=== PATIENT | female | born 1980 | race Caucasian/White ===

== ENCOUNTER → 2024-01-31 15:35 | Outpatient (REF) | payer OTHER, SELFPAY | LOC: WDC 15:35 | PROVIDERS: ATTENDING PHYSICIAN Family Medicine | DX: Z12.31 Encounter for screening mammogram for malignant neoplasm of breast (principal) | CPT/HCPCS: 77063; 77067 ==

== ENCOUNTER 2024-03-24 10:15 | Inpatient (IN) | payer OTHER, SELFPAY ==
[2024-03-22 10:45] VITALS: BP 119/80
[2024-03-22 11:44] LABS: % Basophils 0.3 % (0-2); % Eosinophils 0.4 % (0-6); % Immature Granulocytes 0.1 % (0-0.5); % Lymphocytes 16.5 % (20.5-51.1); % Neutrophils 76.7 % (42.2-75.2); Absolute Lymphocytes 1.1 10^3/uL (1.2-3.4); Absolute Monocytes 0.4 10^3/uL (0.1-0.6); Absolute Neutrophils 5.3 10^3/uL (1.4-6.5); Hematocrit 43.1 % (37.0-47.0); Hemoglobin 15.5 g/dL (12.0-16.0); Mean Corpuscular Hgb 31.4 pg (27.0-31.0); Mean Corpuscular Volume 87.2 fL (81.0-99.0); Mean Platelet Volume 10.4 fL (7.4-10.4); Nucleated Red Blood Cells % 0 %; Platelet Count 207 10^3/uL (130-400); Red Blood Cell Count 4.94 10^6/uL (4.20-5.40); Red Cell Dist. Width 11.9 % (11.5-14.5); White Blood Cell Count 6.9 10^3/uL (4.8-10.8)
[2024-03-22 12:01] LABS: ALT (SGPT) 29 U/L (0-35); AST (SGOT) 29 U/L (14-36); Albumin 4.6 g/dl (3.5-5.0); Alkaline Phosphatase 59 U/L (38-126); Blood Urea Nitrogen 15 mg/dl (7-17); Calcium 9.3 mg/dl (8.4-10.2); Carbon Dioxide 24 mmol/L (22-30); Chloride 103 mmol/L (98-107); Glucose 92 mg/dl (70-99); Potassium 4.4 mmol/L (3.5-5.1); Sodium 138 mmol/L (135-145); Total Bilirubin 0.8 mg/dl (0.2-1.3); Total Protein 7.2 g/dl (6.3-8.2); eGFR > 60.00
[2024-03-22 12:12] LABS: HCG, Serum Qualitative Screen Negative
--- NOTE | 2024-03-22 12:30 | ED.GENMED ---
History of Present Illness
<Elier Anaya PA-C - Last Filed: 03/22/24 19:57>
General
Chief Complaint: Back Pain
Source: patient
Exam Limitations: none
Time Seen by Provider: 03/22/24 12:10
History of Present Illness
History of Present Illness:
44-year-old otherwise healthy female presents complaining of progressively worsening severe lower back pain that radiates to the bilateral lower extremities. She also states that she is not emptying her bladder. She notes increased frequency of
urination but feels a full bladder. She now notes that both feet feel numb. The pain is significantly made worse with walking. No known injury. No fever. She does not use IV drugs. She also notes that she has been bruising in her legs easily.
She denies any bleeding gums. No other complaints at this time
Phy Exam
<Elier Anaya PA-C - Last Filed: 03/22/24 19:57>
Physical Exam
Physical Exam:
General: Well-appearing female no acute respiratory distress
HEENT: Normocephalic atraumatic heart: Regular rate and rhythm no murmurs
Lungs: Clear no wheeze or rales
Musculoskeletal exam: Mild tenderness about the lower lumbar spine neurologic exam: Alert normal gait. Notes slightly decreased sensation to light touch. 2+ patellar reflexes. Positive bilateral straight leg raise good strength.
Skin: Small bruises noted to the outer aspects of the thighs bilaterally
Vascular: 2+ dorsalis pedis pulse bilateral feet
Course
<JEEVAN Hammond Last Filed: 03/22/24 19:57>
Orders/Labs/Results
Orders:
Orders
03/22/24 11:37
Complete Blood Count/With Diff Urgent
Comprehensive Metabolic Panel Urgent
Creatine Phosphokinase Urgent
Comment: ADD ON
HCG, Serum Qualitative Screen Urgent
Comment: ADD ON
03/22/24 11:54
Add On- LAB Urgent
Comments:: HCG qual serum
Tests Added?: HCG qual serum
03/22/24 12:23
Bladder Scan- Treatment ONCE
Ketorolac [Toradol] 15 mg IV NOW STA
03/22/24 12:24
Dexamethasone Sod Phosphate [Decadron] 10 mg IV NOW STA
03/22/24 12:28
MR Lumbar Without Contrast Urgent
Comment:
Reason For Exam: bilateral leg pain, urinary retention
Recent pill cam endoscopy?: No
03/22/24 12:40
PT/INR [Prothrombin Time] Urgent
Urinalysis Reflex To Culture Urgent
Date Specimen was Collected: 03/22/24
Time Specimen was Collected: 12:29
Urine Microscopic Reflex Cult Urgent
03/22/24 12:42
Add On- LAB Urgent
Tests Added?: cpk
03/22/24 18:20
CT Head W/o Iv Contrast Urgent
Comment:
Reason For Exam: headache, confusion
03/22/24 23:15
Acetaminophen [Tylenol] 650 mg PO NOW STA
03/22/24 23:47
Admit/Transfer Patient As Directed
Co-Sign Provider:
Level of Care: Observation services
Assign to:: Medical/Surgical
Physician / Group: Long
Diagnosis: Back Pain / Hip Pain
PRN Pain Medication Management As Directed
May give lesser potent ordered pain med per pt: Yes
preference::
Protocol:: Medication orders for pain may be administered in a
manner that supports deferring to patient preference
when the pt is:
- Requesting an ordered lesser potent pain medication.
Least to most potent pain medications are defined
as: acetaminophen < NSAID < tramadol < opioids
(morphine, oxycodone, hydromorphone).
- Requesting a lesser dose of the same medication IF
ORDERED.
- Requesting a less intrusive route of administration
if both routes are prescribed by the provider (PO <
IV).
03/22/24 23:48
Code Status As Directed
Resuscitation Status: Full Code
Abnormal Lab Results
03/22/24 03/22/24
11:37 12:40
MCH 31.4 H pg
(27.0-31.0)
Absolute Lymphs (auto) 1.1 L 10^3/uL
(1.2-3.4)
Neutrophils % 76.7 H %
(42.2-75.2)
Lymphocytes % 16.5 L %
(20.5-51.1)
Leukocyte Esterase Rfl Trace A
(Negative)
Urine Bacteria (Reflex) Few A
(Negative)
03/22/24 11:37
03/22/24 11:37
Vital Signs
Initial and Last Documented VS:
Initial Vital Signs
Temp Pulse Resp BP Pulse Ox
97.4 F 89 18 119/80 100
03/22/24 10:45 03/22/24 10:45 03/22/24 10:45 03/22/24 10:45 03/22/24 10:45
Last Documented Vital Signs
Temp Pulse Resp BP Pulse Ox
98.7 F 104 20 125/69 98
03/22/24 21:42 03/22/24 21:42 03/22/24 21:42 03/22/24 21:42 03/22/24 21:42
<ALEKSANDRA Caldwell - Last Filed: 03/23/24 00:10>
Orders/Labs/Results
Orders:
Orders
03/22/24 11:37
Complete Blood Count/With Diff Urgent
Comprehensive Metabolic Panel Urgent
Creatine Phosphokinase Urgent
Comment: ADD ON
HCG, Serum Qualitative Screen Urgent
Comment: ADD ON
03/22/24 11:54
Add On- LAB Urgent
Comments:: HCG qual serum
Tests Added?: HCG qual serum
03/22/24 12:23
Bladder Scan- Treatment ONCE
Ketorolac [Toradol] 15 mg IV NOW STA
03/22/24 12:24
Dexamethasone Sod Phosphate [Decadron] 10 mg IV NOW STA
03/22/24 12:28
MR Lumbar Without Contrast Urgent
Comment:
Reason For Exam: bilateral leg pain, urinary retention
Recent pill cam endoscopy?: No
03/22/24 12:40
PT/INR [Prothrombin Time] Urgent
Urinalysis Reflex To Culture Urgent
Date Specimen was Collected: 03/22/24
Time Specimen was Collected: 12:29
Urine Microscopic Reflex Cult Urgent
03/22/24 12:42
Add On- LAB Urgent
Tests Added?: cpk
03/22/24 18:20
CT Head W/o Iv Contrast Urgent
Comment:
Reason For Exam: headache, confusion
03/22/24 23:15
Acetaminophen [Tylenol] 650 mg PO NOW STA
03/22/24 23:47
Admit/Transfer Patient As Directed
Co-Sign Provider:
Level of Care: Observation services
Assign to:: Medical/Surgical
Physician / Group: Long
Diagnosis: Back Pain / Hip Pain
PRN Pain Medication Management As Directed
May give lesser potent ordered pain med per pt: Yes
preference::
Protocol:: Medication orders for pain may be administered in a
manner that supports deferring to patient preference
when the pt is:
- Requesting an ordered lesser potent pain medication.
Least to most potent pain medications are defined
as: acetaminophen < NSAID < tramadol < opioids
(morphine, oxycodone, hydromorphone).
- Requesting a lesser dose of the same medication IF
ORDERED.
- Requesting a less intrusive route of administration
if both routes are prescribed by the provider (PO <
IV).
03/22/24 23:48
Code Status As Directed
Resuscitation Status: Full Code
Abnormal Lab Results
03/22/24 03/22/24
11:37 12:40
MCH 31.4 H pg
(27.0-31.0)
Absolute Lymphs (auto) 1.1 L 10^3/uL
(1.2-3.4)
Neutrophils % 76.7 H %
(42.2-75.2)
Lymphocytes % 16.5 L %
(20.5-51.1)
Leukocyte Esterase Rfl Trace A
(Negative)
Urine Bacteria (Reflex) Few A
(Negative)
03/22/24 11:37
03/22/24 11:37
Vital Signs
Initial and Last Documented VS:
Initial Vital Signs
Temp Pulse Resp BP Pulse Ox
97.4 F 89 18 119/80 100
03/22/24 10:45 03/22/24 10:45 03/22/24 10:45 03/22/24 10:45 03/22/24 10:45
Last Documented Vital Signs
Temp Pulse Resp BP Pulse Ox
98.7 F 104 20 125/69 98
03/22/24 21:42 03/22/24 21:42 03/22/24 21:42 03/22/24 21:42 03/22/24 21:42
<Elier Anaya PA-C - Last Filed: 03/22/24 19:57>
MDM/Problems Addressed
Differential Diagnosis Includes:
Low back pain with leg pain and urinary symptoms. Most concerning item in differential will be potentially cauda equina however this would be unlikely in an otherwise healthy younger female. Given her symptoms of severe back pain and urinary
retention will check urinalysis and postvoid residual of almost 300mL will attempt to get MRI of her lumbar spine. Consider radiculopathy as source of discomfort. She does not have a fever does not use IV drugs. Do not suspect epidural abscess.
She has palpable pulses to her feet with good blood flow to her feet do not suspect vascular compromise. No evidence of paralysis on exam
Labs pending will treat with Decadron and Toradol for symptoms. Discussed with radiology. Will attempt to get MRI of lumbar spine
MRI pending. While waiting, patient noticed she has been confused and mixing words up as well. CT head ordered which is pending official read but no obvious findings to ED provider.
<ALEKSANDRA Caldwell - Last Filed: 03/23/24 00:10>
MDM/Problems Addressed
Differential Diagnosis Includes:
Low back pain with leg pain and urinary symptoms. Most concerning item in differential will be potentially cauda equina however this would be unlikely in an otherwise healthy younger female. Given her symptoms of severe back pain and urinary
retention will check urinalysis and postvoid residual of almost 300mL will attempt to get MRI of her lumbar spine. Consider radiculopathy as source of discomfort. She does not have a fever does not use IV drugs. Do not suspect epidural abscess.
She has palpable pulses to her feet with good blood flow to her feet do not suspect vascular compromise. No evidence of paralysis on exam
Labs pending will treat with Decadron and Toradol for symptoms. Discussed with radiology. Will attempt to get MRI of lumbar spine
MRI pending. While waiting, patient noticed she has been confused and mixing words up as well. CT head ordered which is pending official read but no obvious findings to ED provider.
2315: received sign out . MRI with mild degenerative change of the spine. discussed with previous provider will adm for back pain ,urinary retention leg pain ,paresthesias to feet and intermittent confused conversation
<ALEKSANDRA Caldwell - Last Filed: 03/23/24 00:10>
*Critical Care Note
Total Time (30-74mins, 75-104mins- exclusive of procedures): Not Applicable
ED Attending Note
<Elier Anaya PA-C - Last Filed: 03/22/24 19:57>
-
Portions of this chart may have been created with voice recognition software.� Occasional wrong word or��sound alike� substitutions may have occurred due to the inherent limitations of voice recognition software.
Discharge Plan
Departure
Patient Disposition: Admit
Date of Disposition: 03/22/24
Time of Disposition: 23:22
Admit to: Med/Surg
Presentation/result/management discussed w/ accepting MD/DO: Hospitalist
Condition: Fair
Covid-19: Not Applicable
Discharge Problem:
Low back pain, Acute urinary retention, confusion, Bilateral leg pain, paresthesias
Interventions
Interventions:
*Risk Screen - Suicide Last Done: 03/22/24 10:45
*General Assessment Last Done: 03/22/24 10:45
*Neglect/Abuse Screening Last Done: 03/22/24 10:45
ED- Fall Risk Assessment Last Done: 03/22/24 11:00
*ED COVID-19 Vaccine History Last Done: 03/22/24 11:00
ED-Musculoskeletal Assessment Last Done: 03/22/24 11:00
[2024-03-22] MEDS: TORADOL 15 MG IV (12:45)
[2024-03-22 12:57] LABS: Urine Albumin Negative (Neg - Trace); Urine Bilirubin Negative (Negative); Urine Character Clear (Clear); Urine Color Yellow; Urine Glucose Negative (Negative); Urine Ketone Negative (Negative); Urine Leukocyte Trace (Negative); Urine Nitrite Negative (Negative); Urine Occult Blood Negative (Negative); Urine Specific Gravity 1.005 (<1.030); Urine Urobilinogen Negative (Neg - 1+)
[2024-03-22 13:04] LABS: INR 1.02; PT 13.2 Sec (11.4-14.6)
[2024-03-22] MEDS: DECADRON 10 MG IV (13:06)
[2024-03-22 13:17] LABS: Urine Bacteria Few (Negative); Urine Red Blood Cell 0-2 /HPF (0-2)
[2024-03-22 13:43] LABS: Creatine Phosphokinase 55 U/L (30-135)
[2024-03-22 14:05] VITALS: BP 118/71; BMI 22.9
[2024-03-22 18:03] VITALS: BP 123/76
[2024-03-22 21:42] VITALS: BP 125/69
--- NOTE | 2024-03-22 23:52 | HPS.HSE ---
Family Physician
-
Family Physician: Keith Oconnor
Chief Complaint
-
Hip Pain, LE Numbness, Muscle Pain, etc
History of Present Illness
Patient is a 44y F with no specific PMH who presents to ED complaining of multiple symptoms. Patient states that she has been having low back pain for the past 1 1/2 years. She reports that about two months ago this pain increased and radiated
into the L hip specifically. She was seen by her PCP and then Ortho at that time and x-rays were unremarkable. She was advised to have MRI of the hip; however, she has not yet been able to schedule this.
In the interim, patient notes that pain now also includes the R hip. She has pain that radiates along the medial and lateral aspect of both thighs. She reports muscles 'popping out' on both legs. Scattered small bruises in similar distribution
along lateral and medial thighs. Patient denies any specific injury or trauma and in fact notes that she has stopped her usual exercise, working out, etc due to her symptoms.
During recent eval with her PCP, patient also mentioned difficulty fully emptying her bladder and she was referred to the ED for further evaluation.
Patient notes that she was seen recently at [facility] ED for these same symptoms. They discharged her to home and recommended outpatient follow-up with Neurology and Rheumatology.
Patient notes that she was unable to get a Neurology appointment for 9 months.
In the ED patient appears comfortable. She is moving about without any difficulty.
Patient also noted to the ED staff that she has been having some brief episodes of confusion / word-finding difficulty.
Patient states that she was started on phentermine about a month or so ago to see if weight loss would help with her hip pain.
Medical History
Past Medical History
Past Medical History: Reports None
Past Surgical History: Reports None
Social History
Tobacco: Non-smoker
Alcohol: Occasional
Drug: Marijuana (Smokes / Gummies)
Family History
Family History: Other (Mother: Breast Cancer MGM: Rheumatoid Arthritis PGF: Brain Cancer)
Allergies / Home Medications
Allergies reflects when Allergies were last updated in [facility].
Home Medications with original date entered in [facility]
Allergy/Medication List:
Allergies
Allergy/AdvReac Type Severity Reaction Status Date / Time
NKA - No Known Allergies Allergy Unknown Uncoded 03/22/24 10:45
Home Medications
cetirizine 10 mg tablet (Zyrtec) 10 mg PO DAILY 03/22/24
fluticasone propionate 50 mcg/actuation nasal spray,suspension 1 spray intranasal DAILY 03/22/24
phentermine 37.5 mg tablet 37.5 mg PO Q48H 03/22/24
Review of Systems
-
History Source: Patient
A 12 point ROS was completed and negative except as noted: Yes
Constitutional: Reports Weight Loss (20 lbs in the past 60 days on phentermine.); Denies Fever
EENT: Denies Sore Throat
Respiratory: Denies Cough or Trouble Breathing
Cardiac: Denies Chest Pain or Palpitations
Abdomen/GI: Denies Abdominal Pain, Nausea, Vomiting or Diarrhea
: Reports Difficulty Voiding and Other (Incomplete emptying.); Denies Dysuria or Frequency
Musculoskeletal: Reports Joint Pain and Muscle Pain; Denies Edema
Skin: Denies Rash
Neurological: Reports Numbness; Denies Dizzy, Headache or Weakness
Hematologic/Lymphatic: Reports Bruising
Psych: Denies Depression or Anxiety
Physical Exam
Vital Signs
Vital Signs
Temp Pulse Resp BP Pulse Ox
98.7 F 104 20 125/69 98
03/22/24 21:42 03/22/24 21:42 03/22/24 21:42 03/22/24 21:42 03/22/24 21:42
Physical Exam
General: Other (44y F in no acute distress.)
HEENT: Moist mucous membranes and PERRLA
Respiratory: Clear; No Wheezes, Rales or Rhonchi
Cardiac: S1/S2 and Regular Rhythm; No Murmur
GI: Soft, Non Tender, Non Distended and Normal Bowel Sounds
Musculoskeletal: No Clubbing, No Cyanosis, No Edema and Other (Mild tenderness of the thighs / calves bilaterally. )
Neuro: AO x 3 and Nonfocal/grossly intact
Hematologic/Lymphatic: Other (Scattered dime sized bruises over the lateral thighs / buttocks.)
Psych: No Anxious or Depressed
Laboratory Results
-
03/22/24 11:37
03/22/24 11:37
Laboratory Results
PT 13.2 Sec (11.4-14.6) 03/22/24 12:40
INR 1.02 03/22/24 12:40
Total Bilirubin 0.8 mg/dl (0.2-1.3) 03/22/24 11:37
AST 29 U/L (14-36) 03/22/24 11:37
ALT 29 U/L (0-35) 03/22/24 11:37
Alkaline Phosphatase 59 U/L (38-126) 03/22/24 11:37
Impression/Plan
-
A/P: Patient is a 44y F with no significant PMH who presents to ED complaining of back pain, hip pain, LE pain and numbness, bruising, urinary retention and word-finding difficulties.
Pain
Urinary Retention
Word-Finding Difficulties
- Observe overnight for further evaluation.
- Current described symptoms, exam, labs and imaging findings are not consistent with any evident / specific syndrome.
- AST, CPK unremarkable.
- Symptoms are not in any specific neurologic distribution.
- MR lumbar spine without evidence of significant stenosis / cauda equina / etc.
- ED staff advised patient that she would be hospitalized for Neurology evaluation.
- Check MR brain in the AM given word-finding issues reported.
- Follow for any new / worsening symptoms.
- Check inflammatory markers, MARGARET, etc.
- Suspect that patient will require ongoing outpatient follow-up and work-up to investigate her constellation of symptoms.
DVT Prophylaxis: SCDs
Code Status: Full
--- NOTE | 2024-03-23 01:00 | PTCARENOTE ---
Pt arrived from ED via wheelchair and ambulated to bed. Pt is AAOx3, VSS, and complains of 6/10 B/L lower back pain radiating down to her legs. Pt refused medication for pain. Pt is oriented to room, resting comfortably w/ call [place] within reach.
[2024-03-23 01:03] VITALS: BP 111/72; BMI 23.5
[2024-03-23 07:05] VITALS: BP 120/80
[2024-03-23 08:51] LABS: C-Reactive Protein < 5.00 mg/L (0.0-10.00)
[2024-03-23 09:17] LABS: Erythrocyte Sed Rate 10 mm/hour (0-20)
--- NOTE | 2024-03-23 09:17 | W.PN.HOSP.TC ---
Today's Communication/Plan
-
NEuro eval
MRI
Assessment / Plan
Assessment / Plan
44yo F with PMHx of migraines with visual aura came with few months of worsening L hip pain radiating to LLE and recently new R hip pain radiating to RLE associated with b/l feet intermittent numbness. Was seen by outpatient ortho scheduled for MRI
of the L hip. Was also c/o intermittent incomplete urinary bladder emptying. MRI lubar spine showed couple of disk bulges without compression onto central cord with mild DJD and mild slight compression of thecal sac on L2-L3.
Also c/o burning feeling in shoulder griddle when working with computer
Pain not improved after systemic steroids given in ED
A/P:
#b/l LE pain and paresthesia
NEuro consult
MRI cervial, thoracic spine, MRI brain
Neurology consult
MARGARET, inflammatory markers sent
Recommend outpatient spinal specialist, neurology and rheumatology upon d/c
Patient tested for lyme as putpatient and reports that test was resulted neg
CPK WNL
#Patient reported easy bruising
PT/INR WNL
check PTT
Outpatient mixing study and VW factor assay recommended
#Hx of migraines with aura
MRI brain
#Intermittent difficulty voiding
UA neg for UTI
DVT ppx on SCDs
Full code
I have spent at least 59min reviewing chart, test results, communication with consultants and direct patient care
Anticipated Discharge: Within 24 hours
Subjective/Interval History
-
Date of Service: March 23, 2024
Objective Data
-
Vital Signs:
Vital Signs
Temp Pulse Resp BP Pulse Ox
99 F 98 16 120/80 100
03/23/24 07:05 03/23/24 07:05 03/23/24 07:05 03/23/24 07:05 03/23/24 07:05
I&O
03/22/24 03/23/24 03/24/24
06:59 06:59 06:59
Intake Total 480 / 480
Balance 480 / 480
Review of Systems
-
History Source: Patient
All other systems: Reviewed and negative
Genitourinary: Reports Difficulty Voiding
Neuro: Reports Headache and Numbness (LE)
Hematologic / Lymphatic: Reports Bruising
Physical Exam
-
General: No Apparent Distress
HEENT: Normocephalic and Atraumatic
Respiratory: Clear to Auscultation
Cardiac: Regular Rhythm
GI: Soft, Nontender and Nondistended
Neuro: Awake, Alert, Oriented, AO x 3 and Nonfocal/Grossly Intact
Psych: Calm
[2024-03-23 09:21] LABS: TSH Reflex To Free T4 1.17 uIU/ml (0.47-4.68)
[2024-03-23 11:04] LABS: APTT 29.7 Sec (23.4-35.0)
--- NOTE | 2024-03-23 11:38 | CON.NEURO4 ---
Consultation - Neurology 4
-
CONSULTING PHYSICIAN: Garcia Mcgraw MD neurology
REFERRING PHYSICIAN: Hospitalist
DICTATED BY: Garcia Mcgraw MD
DATE/TIME OF REQUEST: March 23, 2024
DATE/TIME OF CONSULTATION: March 23, 2024
Reason for Consultation: Low back pain
History of Present Illness:
This is a 44 year old right) handed female) who has presented to the hospital with (chief complaint) of worsening low back pain over the last 4 to 6 weeks.
Patient states that she has been having low back pain for the past 10 years. She reports that about two months ago this pain increased and radiated into the L hip specifically. She was seen by her PCP and then Ortho at that time and x-rays were
unremarkable. She was advised to have MRI of the hip; however, she has not yet been able to schedule this.
In the interim, patient notes that pain now also includes the R hip. She has pain that radiates along the medial and lateral aspect of both thighs. She reports muscles 'popping out' on both legs. Scattered small bruises in similar distribution
along lateral and medial thighs. Patient denies any specific injury or trauma and in fact notes that she has stopped her usual exercise, working out, etc due to her symptoms.
During recent eval with her PCP, patient also mentioned difficulty fully emptying her bladder and she was referred to the ED for further evaluation.
Patient notes that she was seen recently at [facility] ED for these same symptoms. They discharged her to home and recommended outpatient follow-up with Neurology and Rheumatology.
In the ED patient appears comfortable. She is moving about without any difficulty.
Patient also noted to the ED staff that she has been having some brief episodes of confusion / word-finding difficulty.
Patient states that she was started on phentermine about a month or so ago to see if weight loss would help with her hip pain.
Pat refused pain medications
Past Medical History: LBP
Surgical History: None
Family History: Arthritis
Social History: Occasional Marijuana
Allergies: No known drug allergies
Home Medications: Addendum
Review of Symptoms:
Patient denies any fever, headache, chest pain, shortness of breath, GI or symptoms.
�Per the HPI.�All systems are reviewed negative except above.
�-
Vital Signs:
The patient has a Temp37.2 C Pulse 98 Resp 16 BP 120/80 Pulse Ox 100
Physical Exam:
The patient is afebrile, heart sounds S1 and S2 are (regular / and chest is clear to auscultation bilaterally.
Neurologic Examination:
The patient is awake, alert and oriented x 3. She is able to follow commands and answer questions appropriately. There is no aphasia or dysarthria. On cranial nerve assessment, pupils are 3 mm bilateral, round and reactive to light and
accommodation. Visual marie are full. Extraocular movements are intact. Facial sensations are intact and bilaterally symmetrical, there is no facial asymmetry. Hearing is intact bilaterally to normal conversation volume. Tongue palate and uvula
are midline. Sternocleidomastoid strengths are full bilaterally. Motor strengths are 5/5 bilateral upper and lower extremities on medical research Simpson scale. There is no drift or involuntary movement noted. Deep tendon reflexes are 2+ bilateral
upper and lower extremities and Babinski is absent bilaterally. Sensations of pain, touch, temperature and vibration are intact and bilaterally symmetrical. There was no extinction noted on double simultaneous stimulation. Coordination is intact by
finger to nose bilaterally.
Romberg Negative. GAit WNL
Lab Results: Addendum
Neuro Imaging: CT head within normal limits
Impression:
(Mrs.) WILL ROWE is a 44 year old F who has presented to the hospital with (symptoms/chief complaint).
Differentials for the patient's presentation include:
1. Fibromyalgia
2. Cervical spondylosis cervical radiculopathy
3. Demyelinating disorder
Recommendations:
1. MRI of brain with and without dung
2. MRI C-spine with and without dung
3. Rheumatology evaluation
4. Gabapentin 100 to 300 mg
5. B12 level
Discussed patient care with: Hospitalist
Allergies
-
Allergies
Allergy/AdvReac Type Severity Reaction Status Date / Time
NKA - No Known Allergies Allergy Unknown Uncoded 03/22/24 10:45
Vital Signs and Labs
-
Vital Signs and Labs:
Vital Signs
Temp Pulse Resp BP Pulse Ox
37.2 C 98 16 120/80 100
03/23/24 07:05 03/23/24 07:05 03/23/24 07:05 03/23/24 07:05 03/23/24 07:05
Lab Results
03/22/24 11:37
03/22/24 11:37
PT 13.2 Sec (11.4-14.6) 03/22/24 12:40
INR 1.02 03/22/24 12:40
APTT 29.7 Sec (23.4-35.0) 03/23/24 10:08
Sodium 138 mmol/L (135-145) 03/22/24 11:37
Potassium 4.4 mmol/L (3.5-5.1) 03/22/24 11:37
BUN 15 mg/dl (7-17) 03/22/24 11:37
Glucose 92 mg/dl (70-99) 03/22/24 11:37
Calcium 9.3 mg/dl (8.4-10.2) 03/22/24 11:37
Medications
-
Active Medications
Generic Name Dose Route Start Last Admin
Trade Name Freq PRN Reason Stop Dose Admin
Acetaminophen 650 mg 03/23/24 00:58
Acetaminophen 325 Mg Tablet PO 04/20/24 00:57
Q4HPRN PRN
Mild Pain / Temp > 101
Home Medications
�Medication �Instructions �Recorded
cetirizine 10 mg tablet (Zyrtec) 10 mg PO DAILY Allergies 03/22/24
fluticasone propionate 50 1 spray intranasal DAILY Allergies 03/22/24
mcg/actuation nasal
spray,suspension
phentermine 37.5 mg tablet 37.5 mg PO Q48H weight loss 03/22/24
[2024-03-23 13:15] LABS: Vitamin B12 315 pg/ml (239-931)
--- NOTE | 2024-03-23 14:25 | W.DCSUMMARY ---
Discharge Summary
Discharge Data
Date of Admission: 03/24/24
Date of Discharge: 03/24/24
-
Pending Results: Yes
Additional Pending Results:
MARGARET, RF
Hospital Course
44yo F with PMHx of migraines with visual aura came with few months of worsening L hip pain radiating to LLE and recently new R hip pain radiating to RLE associated with b/l feet intermittent numbness. Was seen by outpatient ortho scheduled for MRI
of the L hip. Was also c/o intermittent incomplete urinary bladder emptying. MRI lubar spine showed couple of disk bulges without compression onto central cord with mild DJD and mild slight compression of thecal sac on L2-L3.
Also c/o burning feeling in shoulder griddle when working with computer
Pain not improved after systemic steroids given in ED. ESR/CRP, TSH WNL
MRI brain and cervical thoracic spine showed no acute pathology. Neurologist is contributing symptoms to fibromyalgia. Patient declined offered Baclofen or neurontin. reasonable for empiric fosfomycin due to minimal bacteria on UA and urinary
symptoms. As per neurologist: possible fibromyalgia. MRI brain and cervical spine without acute findings. Pain improved with Gabapentin. Medically stable and agreeable with d/c
I have spent at least 39min preparing discharge
A/P:
#b/l LE pain and paresthesia, possibly 2/2 fibromyalgia
#Patient reported easy bruising
#Hx of migraines with aura
#Intermittent difficulty voiding, possible simple cystitis
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
Discharge Plan
-
Patient Disposition: Home (Routine Discharge)
Discharge Diagnosis/Procedures: b/l LE pain
Diet: Regular
Activity: As tolerated
Driving Restrictions: As prior to admission
Referrals:
Matthew Bustillo DO [Active] - in three to four days (Easy bruising)
Keith Oconnor DO [Family Provider] - in one to two weeks (Recommend workup for coagulopathy)
Romeo Tejeda DO [Active] - in two to four weeks (DJD, disk bulge)
Bhanu Schwartz MD [Consulting Staff] - in four to six weeks
()
Prescriptions:
New
gabapentin 100 mg Capsule
100 mg PO TID Qty: 90 0RF
nitrofurantoin monohyd/m-cryst 100 mg Capsule
100 mg PO BID Qty: 12 0RF
Continued
cetirizine [Zyrtec] 10 mg Tablet
10 mg PO DAILY
phentermine 37.5 mg tablet
37.5 mg PO Q48H
fluticasone propionate 50 mcg/actuation [place],Suspension
1 spray INTRANASAL DAILY
Discharge Orders:
Discharge Patient (As Directed); Ordered 03/24/24
Ordered By: Jules Russell
Discharge Date and Time
Print Language: MAURITANIAN
[2024-03-23 15:05] VITALS: BP 113/67
[2024-03-23] MEDS: TYLENOL 650 MG PO (17:35)
[2024-03-23] MEDS: MACROBID 100 MG PO (20:18)
[2024-03-23] MEDS: NEURONTIN 100 MG PO (20:18)
[2024-03-23] MEDS: MELATONIN 5 MG PO (22:03)
[2024-03-23 23:30] VITALS: BP 98/62
[2024-03-24 07:16] VITALS: BP 95/53
[2024-03-24] MEDS: MACROBID 100 MG PO (08:03)
[2024-03-24] MEDS: TYLENOL 650 MG PO (08:03)
--- NOTE | 2024-03-24 13:23 | W.PN.HOSP.TC ---
Today's Communication/Plan
-
dc
Assessment / Plan
Assessment / Plan
44yo F with PMHx of migraines with visual aura came with few months of worsening L hip pain radiating to LLE and recently new R hip pain radiating to RLE associated with b/l feet intermittent numbness. Was seen by outpatient ortho scheduled for MRI
of the L hip. Was also c/o intermittent incomplete urinary bladder emptying. MRI lubar spine showed couple of disk bulges without compression onto central cord with mild DJD and mild slight compression of thecal sac on L2-L3.
Also c/o burning feeling in shoulder griddle when working with computer
Pain not improved after systemic steroids given in ED
As per neurologist: possible fibromyalgia. MRI brain and cervical spine without acute findings. Pain improved with Gabapentin. Medically stable for d/c
A/P:
#b/l LE pain and paresthesia
Neurology consult
MARGARET, inflammatory markers sent - ESR, TSH, CRP WNL, MARGARET and RF pending, patient to follow with site safety manager - referral provided
Recommend outpatient spinal specialist, neurology and rheumatology upon d/c
Patient tested for lyme as outpatient and reports that test was resulted neg
CPK WNL
Lumbar and cervical spine MRI with mild disk bulging disease
#Patient reported easy bruising
PT/INR WNL
PTT WNL
Outpatient mixing study and VW factor assay recommended
#Hx of migraines with aura
MRI brain WNL
#Intermittent difficulty voiding
UA neg for UTI
DVT ppx on SCDs
Full code
I have spent at least 39min reviewing chart, test results, communication with consultants and direct patient care
Anticipated Discharge: Today
Subjective/Interval History
-
Date of Service: March 24, 2024
Objective Data
-
Vital Signs:
Vital Signs
Temp Pulse Resp BP Pulse Ox
98.3 F 82 16 95/53 97
03/24/24 07:16 10/06/24 07:16 03/24/24 07:16 03/24/24 07:16 03/24/24 07:16
I&O
03/23/24 03/24/24 03/25/24
06:59 06:59 06:59
Intake Total 960 / 960
Balance 960 / 960
Review of Systems
-
All other systems: Reviewed and negative
Constitutional: Reports No Symptoms
Musculoskeletal: Reports Other (neck pain)
Physical Exam
-
General: No Apparent Distress
HEENT: Normocephalic and Atraumatic
Neuro: Awake, Alert, Oriented and AO x 3
Psych: Calm
--- NOTE | 2024-03-24 13:43 | CM ---
CM following re: discharge planning.
Reviewed pt's chart, met with pt yesterday ant today.
pt is a 44 year old female, admitted with OBS status and primary dx of back pain. OBS status explained to the pt, a copy placed on the chart.
Pt reports she lives with and 2 children 2SH, 2 steps to enter. 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
Discharge order noted. Pt is aware and she stated her is coming to transport home.
D/c plan: home no needs. to transport
[2024-03-24 13:59] VITALS: BP 121/72
[2024-03-25 08:50] LABS: ANA, IgG Reflex to HEp-2 None Detected (None Detected)
[2024-03-25 13:45] LABS: Rheumatoid Agglutinin Less Than 10 IU (<10 IU)
== END 2024-03-24 14:30 | disposition home or self-care (01) | DRG 552 ==
LOC: 4 EAST ACU 10:15
PROVIDERS: Emergency Medicine; Physician Assistant; ADMITTING PHYSICIAN Hospitalist; ATTENDING PHYSICIAN Internal Medicine; CONSULT PHYSICIAN Psychiatry & Neurology Neurology; EMERGENCY PHYSICIAN Emergency Medicine; FAMILY PHYSICIAN Family Medicine
DX: M50.322 Other cervical disc degeneration at C5-C6 level (principal); M79.7 Fibromyalgia; R35.0 Frequency of micturition; R33.9 Retention of urine, unspecified; M25.551 Pain in right hip; M79.605 Pain in left leg; R41.0 Disorientation, unspecified; G43.109 Migraine with aura, not intractable, without status migrainosus; R20.2 Paresthesia of skin; Z80.8 Family history of malignant neoplasm of other organs or systems; Z80.3 Family history of malignant neoplasm of breast
CPT/HCPCS: 51798; 70450; 70553; 72148; 72156; 80053; 81003; 81015; 82550; 82607; 84443; 84703; 85025; 85610; 85652; 85730; 86038; 86140; 86430; 96374; 96375; 99285; A9575

== ENCOUNTER 2025-04-09 12:50 | Emergency (ER) | payer OTHER, SELFPAY ==
[2025-04-09 12:51] VITALS: BP 140/81
[2025-04-09 12:54] VITALS: BMI 24.9
--- NOTE | 2025-04-09 13:42 | ED.GENMED ---
History of Present Illness
General
Chief Complaint: Chest Problem
Source: patient
Exam Limitations: none
Time Seen by Provider: 04/09/25 13:26
History of Present Illness
History of Present Illness:
45yoF with a history of fibromyalgia presenting for a rabies vaccine. Patient's dogs were fighting with a raccoon today in her backyard. She tried to break it up and was scratched in the left cheek. She believes it was one of her dogs that
scratched her but is not sure. She called her PCP and was told to go to the ED to obtain rabies vaccine. She also is reporting palpitations. She has been experiencing palpitations intermittently over the past several months. She states her heart
will race at times and she will feel short of breath primarily if she is walking up the steps. She has not been able to exercise due to her fibromyalgia and is not sure if this is related to deconditioning. Her heart has been racing since this
event occurred 2 hours ago. She is also having coughing. No chest pain.
Phy Exam
General Physical Exam
General Presentation: well appearing and no apparent distress
General age: appears stated age
General Skin: warm and dry
General Habitus: normal
General Mental: alert
ENT Exam
ENT Exam: normocephalic
Cardiovascular Exam
Cardiovascular Exam: regular rate/rhythm, no edema and no murmur
Pulmonary Exam
Pulmonary Exam: lungs clear, no respiratory distress, no rales, no crackles, no rhonchi and no wheezing
Neurological Exam
Neurological Exam: alert
Mirella Coma Scale
Eye Opening: Spontaneous
Verbal Response: Oriented
Motor Response: Obeys Commands
GCS Total Score: 15
Skin Exam
Skin Exam: warm/dry and other (Superficial scratch to L cheek)
Psychiatric Exam
Psychiatric Exam: normal mood/affect
Course
Orders/Labs/Results
Orders:
Orders
04/09/25 13:38
Electrocardiogram (*1) Urgent
Reason for Study: Palpitations
EKG- Treatment ONCE
CR Chest - 2 Views Urgent
Comment:
Reason For Exam: SOB
04/09/25 13:42
Tetanus/Diphth/Acelpertussis [Adacel] 0.5 ml IM .ONCE ONE
04/09/25 14:02
Rabies Immune Globulin/Pf [HyperRAB] 1,398 unit IM NOW STA
04/09/25 14:03
Complete Blood Count/With Diff Urgent
Comprehensive Metabolic Panel Urgent
Magnesium Urgent
Troponin I Urgent
04/09/25 14:15
Rabies Vaccine (Pcec)/Pf [Rabavert Rabies Vacc W-Diluent] 2.5 unit IM .ONCE ONE
Abnormal Lab Results
04/09/25
14:03
Absolute Neuts (auto) 7.1 H 10^3/uL
(1.4-6.5)
Neutrophils % 80.8 H %
(42.2-75.2)
Lymphocytes % 14.4 L %
(20.5-51.1)
Sodium 134 L mmol/L
(135-145)
04/09/25 14:03
04/09/25 14:03
Vital Signs
Initial and Last Documented VS:
Initial Vital Signs
Temp Pulse Resp BP Pulse Ox
97.8 F 92 18 140/81 100
04/09/25 12:51 04/09/25 12:51 04/09/25 12:51 04/09/25 12:51 04/09/25 12:51
Last Documented Vital Signs
Temp Pulse Resp BP Pulse Ox
97.8 F 92 18 140/81 100
04/09/25 12:51 04/09/25 12:51 04/09/25 12:51 04/09/25 12:51 04/09/25 13:42
MDM/Problems Addressed
Differential Diagnosis Includes:
45yoF presenting for a rabies vaccine after breaking up a fight between her dogs and a raccoon today. Superficial scratch to L cheek on exam. She also c/o intermittent palpitations x 2 months and heart has been racing since this event 2 hours ago.
Regular rate and rhythm on exam. Differential diagnosis includes: PVCs, arrhythmia, electrolyte abnormality
Initial ED plan: Check cardiac labs, EKG, and CXR. Rabies immunoglobulin, rabies vaccine, and Tdap ordered.
*Pulse Oximetry
SaO2: 100
Oxygen Mode of Delivery: Room air
Patient hypoxic: no
*EKG
Interpreted by ED Provider?: Yes
EKG Intrepretation Date: 04/09/25
Heart Rate: 74
Rate: normal
Rhythm: sinus
Vandiver: normal axis
Interval: normal interval
QRS Pattern: normal QRS
Ischemia: no ischemia
*Critical Care Note
Total Time (30-74mins, 75-104mins- exclusive of procedures): Not Applicable
Update Note
Update Note:
EKG shows NSR without ectopy and intervals are normal. Labs unremarkable including normal electrolytes and troponin. CXR clear. She was given a prescription for the remainder of the rabies vaccines and was advised to schedule this with this infusion
center. Scratch is superficial so do not feel oral antibiotics are warrranted. She was instructed to apply bacitracin and f/u with PCP.
ED Attending Note
-
Portions of this chart may have been created with voice recognition software.� Occasional wrong word or��sound alike� substitutions may have occurred due to the inherent limitations of voice recognition software.
Discharge Plan
Departure
Patient Disposition: Home (Routine Discharge)
Date of Disposition: 04/09/25
Time of Disposition: 15:07
Patient with high blood pressure during this ER visit?: Yes
Discharge Problem:
Rabies, need for prophylactic vaccination against, Palpitations
Instructions: Rabies Vaccine CDC Vaccine Information Statement (VIS)
Prescriptions:
New
rabies vacc,human diploid (PF) 2.5 unit recon soln
2.5 unit IM ONCE Qty: 3 0RF
Rx Instructions:
Administer on 04/11/25, 04/16/25, and 04/23/25.
No Action
cetirizine [Zyrtec] 10 mg Tablet
10 mg PO DAILY
phentermine 37.5 mg tablet
37.5 mg PO Q48H
fluticasone propionate 50 mcg/actuation [place],Suspension
1 spray INTRANASAL DAILY
gabapentin 100 mg Capsule
100 mg PO TID Qty: 90 0RF
nitrofurantoin monohyd/m-cryst 100 mg Capsule
100 mg PO BID Qty: 12 0RF
Referrals:
Rupinder Gonzalez, DO [Family Provider, Internal Medicine]
Stand Alone Forms: Rabies Vaccine Post Exp Dosing
Activity Restrictions/Additional Instructions:
Please call the infusion center to schedule the remainder of your rabies vaccines. You should also follow-up with your family doctor regarding your palpitations.
Apply bacitracin to the scratch.
Return to the ER with any worsening symptoms or signs of infection.
Interventions
Interventions:
*Risk Screen - Suicide Last Done: 04/09/25 12:51
*General Assessment Last Done: 04/09/25 12:51
*Nursing Disposition Last Done: 04/09/25 15:20
ED- Cardiac Assessment Last Done: 04/09/25 14:03
ED- Pulmonary Assessment Last Done: 04/09/25 14:03
Discharge Date and Time
Discharge Date/Time: 04/09/25 15:24
Print Language: [id number]
[2025-04-09 14:11] LABS: Hematocrit 41.7 % (37.0-47.0); Hemoglobin 14.7 g/dL (12.0-16.0); Mean Corp Hgb Conc. 35.3 g/dL (33.0-37.0); Mean Corpuscular Volume 86.9 fL (81.0-99.0); Nucleated Red Blood Cells % 0 %; Platelet Count 239 10^3/uL (130-400); Red Cell Dist. Width 11.9 % (11.5-14.5)
[2025-04-09] MEDS: ADACEL 0.5 ML IM (14:20)
[2025-04-09] MEDS: RABAVERT RABIES VACC W-DILUENT 2.5 UNIT IM (14:20)
[2025-04-09 14:29] LABS: ALT (SGPT) 20 U/L (0-35); AST (SGOT) 21 U/L (14-36); Albumin 4.3 g/dl (3.5-5.0); Alkaline Phosphatase 54 U/L (38-126); Blood Urea Nitrogen 14 mg/dl (7-17); Calcium 9.0 mg/dl (8.4-10.2); Carbon Dioxide 24 mmol/L (22-30); Chloride 107 mmol/L (98-107); Estimated Creatinine Clearance 83 ml/min; Glucose 92 mg/dl (70-99); Magnesium 2.1 mg/dl (1.6-2.3); Potassium 3.9 mmol/L (3.5-5.1); Sodium 134 mmol/L (135-145); Total Protein 7.0 g/dl (6.3-8.2); eGFR > 60.00
[2025-04-09 15:00] LABS: Troponin I 0.014 ng/ml
== END 2025-04-09 15:24 | disposition home or self-care (01) ==
LOC: EMR 12:50
PROVIDERS: Physician Assistant; EMERGENCY PHYSICIAN Emergency Medicine; FAMILY PHYSICIAN Internal Medicine
DX: S00.81XA Abrasion of other part of head, initial encounter (principal); W55.82XA Struck by other mammals, initial encounter; Z20.3 Contact with and (suspected) exposure to rabies; R00.2 Palpitations; Z23 Encounter for immunization; Z29.14 Encounter for prophylactic rabies immune globulin
CPT/HCPCS: 90471; 96372; 99284; 90472; 71046; 80053; 83735; 84484; 85025; 90375; 90675; 90715; 93005

== ENCOUNTER 2025-04-16 15:20 | Outpatient (RCR) | payer OTHER, SELFPAY ==
[2025-04-11 15:40] VITALS: BP 111/72
[2025-04-11] MEDS: RABAVERT RABIES VACC W-DILUENT 2.5 UNIT IM (15:47)
[2025-04-16 15:30] VITALS: BP 102/69
[2025-04-16] MEDS: RABAVERT RABIES VACC W-DILUENT 2.5 UNIT IM (15:37)
== END 2025-04-18 15:10 | disposition home or self-care (01) ==
LOC: OID 15:20
PROVIDERS: ATTENDING PHYSICIAN Emergency Medicine; FAMILY PHYSICIAN Internal Medicine
DX: Z20.3 Contact with and (suspected) exposure to rabies (principal); Z23 Encounter for immunization
CPT/HCPCS: 90471; 90675

== ENCOUNTER 2025-04-23 15:01 | Outpatient (RCR) | payer OTHER, SELFPAY ==
[2025-04-23 15:18] VITALS: BP 107/74
[2025-04-23] MEDS: RABAVERT RABIES VACC W-DILUENT 2.5 UNIT IM (15:28)
== END 2025-04-24 11:32 | disposition home or self-care (01) ==
LOC: OID 15:01
PROVIDERS: ATTENDING PHYSICIAN Emergency Medicine; FAMILY PHYSICIAN Internal Medicine
DX: Z20.3 Contact with and (suspected) exposure to rabies (principal); Z23 Encounter for immunization; R00.2 Palpitations
CPT/HCPCS: 90471; 90675